=== PATIENT | male | born 1995 | race Caucasian/White ===

== ENCOUNTER 2022-03-27 15:41 | Outpatient (CLI) | payer OTHER, SELFPAY ==
[2022-03-27 21:20] LABS: Cholesterol* 164 mg/dL (90-199); Glucose* 78 mg/dL (60-115)
[2022-03-27 21:21] LABS: HDL Cholesterol* 58 mg/dL (>=40); LDL Cholesterol Calculated 93 mg/dL (<100); Triglycerides* 65 mg/dL (40-149)
== END 2022-03-27 15:42 | disposition home or self-care (01) ==
PROVIDERS: Visit Provider Emergency Medicine
DX: Z13.1 Encounter for screening for diabetes mellitus (principal); Z13.6 Encounter for screening for cardiovascular disorders
CPT/HCPCS: 80061; 82947

== ENCOUNTER 2023-03-09 11:09 | Emergency (ER) | payer OTHER, SELFPAY ==
[2023-03-09 11:20] VITALS: BP 131/95; PULSE 81; RESP 16; TEMP 36.5; O2SAT 98; BMI 25.7
--- NOTE | 2023-03-09 11:28 | ED.ABDPAIN ---
HPI - Abdominal Pain General Time Seen by Provider: 11:28 Date Seen: 03/09/23 Chief Complaint: Abdominal Pain Stated Complaint: Abdominal pain, nausea Time Seen by Provider: 03/09/23 11:22 Source: patient and RN notes reviewed Mode of arrival: ambulatory Limitations: no limitations History of Present Illness HPI narrative: This 27-year-old male is coming in with nausea vomiting and left upper quadrant abdominal pain. He states the pain is primarily in the left upper quadrant. He awoke with this this morning, has vomited a few times, had undigested food in the vomit. Did have 1 softer stool this morning, not necessarily diarrhea. Does admit to drinking 6 alcoholic beverages last night. He has never had any abdominal surgery. He is here with his significant other, they just came back from [place] on Friday, today is Friday. No when had been ill up to this point. He denies any respiratory symptoms or fever with this. He is having crampy left upper quadrant abdominal pain, seems like it radiates throughout his abdomen. No urinary symptoms. He does have underlying reflux and admits that he probably should take medicine more than he does. MD elicited complaint: abdominal pain Related Data Home Medications Medication Instructions Recorded Confirmed ibuprofen 200 mg capsule 200 mg PO Q6H PRN 10/11/21 01/08/23 Previous Rx's Medication Instructions Recorded omeprazole 20 mg capsule,delayed 20 mg PO QDAY PRN gerd #90 caps 03/27/22 release Allergies Allergy/AdvReac Type Severity Reaction Status Date / Time No Known Drug Allergies Allergy Verified 01/08/23 07:57 Review of Systems Status of ROS Reports: 6 or more systems reviewed and unremarkable except as noted in History and below PFSH PFS Medical History Screening for hyperlipidemia ?Z13.220 - Encounter for screening for lipoid disorders (ICD-10) Screening for diabetes mellitus ?Z13.1 - Encounter for screening for diabetes mellitus (ICD-10) Nasal turbinate hypertrophy ?J34.3 - Hypertrophy of nasal turbinates (ICD-10) GERD (gastroesophageal reflux disease) ?K21.9 - Gastro-esophageal reflux disease without esophagitis (ICD-10) Encounter for postoperative care ?Z48.89 - Encounter for other specified surgical aftercare (ICD-10) Encounter for health maintenance examination (10/2015) ?Z00.00 - Encounter for general adult medical examination without abnormal findings (ICD-10) Cough ?R05.9 - Cough, unspecified (ICD-10) Abrasion of penis ?S30.812A - Abrasion of penis, initial encounter (ICD-10) Sinusitis ?J32.9 - Chronic sinusitis, unspecified (ICD-10) Surgical History History of tonsillectomy ?Z90.89 - Acquired absence of other organs (ICD-10) History of nasal septoplasty ?Z98.890 - Other specified postprocedural states (ICD-10) History of esophagogastroduodenoscopy (EGD) ?Z98.890 - Other specified postprocedural states (ICD-10) Family History Family/Other Stroke Social History Smoking Status: Never smoker Do you use any of these nicotine containing products: None Second hand tobacco smoke exposure: No How often do you have a drink containing alcohol: 2-3 times a week How many standard drinks containing alcohol do you have on a typical day: 1 or 2 How often do you have six or more drinks on one occasion: Less than monthly AUDIT-C Alcohol total score: 4 Non-prescribed substance use: denies use Little interest or pleasure in doing things: not at all Feeling down, depressed, or hopeless: several days service: No Exam Const: Vital Signs, click to edit/add: Vital Signs - 24 hr 03/09/23 11:20 03/09/23 12:05 03/09/23 12:10 Temperature 97.7 F Pulse Rate [Pulse Oximeter] 81 78 Respiratory Rate 16 16 Blood Pressure [Ri ght Upper Arm] 131/95 H 138/98 H Pulse Oximetry 98 94 94 Oxygen Delivery Me thod Room Air Room Air 03/09/23 12:32 03/09/23 12:38 Temperature 97.7 F Pulse Rate [Pulse Oximeter] 69 Respiratory Rate 16 Blood Pressure [Ri ght Upper Arm] 134/88 Pulse Oximetry 94 96 Oxygen Delivery Me thod Room Air 27-year-old male that is intermittently grimacing, hanging onto an emesis bag but otherwise alert, conversive no significant distress. Sclera clear, pupils are equal and round, conjugate gaze. Speech is normal. Lungs are clear, good air entry, no wheezing or crackles. CV regular rate and rhythm, no murmur, normal S1-S2, no S3-S4. Abdomen is soft, nondistended, no significant tenderness but maybe has some mild left upper quadrant tenderness when I request that he tells me where it hurts. There is certainly no rebound or guarding, no organomegaly or masses. Skin visualized without rash. Moving extremities. Documenting provider has reviewed patient's vital signs: yes Course Course ED Course: This is a 27-year-old male with intermittent abdominal pain, primarily left upper quadrant with underlying history of GERD. This certainly could be component of alcoholic gastritis and symptoms of hangover. We will consider obstructive pathology, gastroenteritis. He has no fever at this time. Will get full complement of labs, do a flat and upright to look at the bowel architecture. He understands that we may need to consider CT imaging if there is concerns on the labs or if he is not improving with medications. Doubtful that this is pancreatitis but this is a consideration, lipase is ordered. We are going to do a L of normal saline, 4 mg IV Zofran and 40 mg IV Protonix. Reevaluation(s) Time of Reevaluation #1: 12:29 Reevaluation #1: Nursing staff requesting pain management for patient, still complaining of abdominal pain, waiting labs, imaging on my preliminary review without any obstructive pathology. Will order 15 mg IV Toradol. Time of Reevaluation #2: 13:23 Reevaluation #2: Patient is feeling better, just wants to go home and sleep. Offered another L of IV fluids but he declines. Did urinate here. Reviewed normal labs, no issues with flat and upright per Radiology. Discussed sending him home with some Zofran in case he does have any more nausea vomiting, they would appreciate that. Vital Signs Vital signs: Initial Vital Signs Temperature 97.7 F 03/09/23 11:20 Temperature Source Temporal Artery Scan 03/09/23 11:20 Pulse Rate 81 03/09/23 11:20 Pulse Rhythm Regular 03/09/23 11:20 Respiratory Rate 16 03/09/23 11:20 Blood Pressure 131/95 H 03/09/23 11:20 Blood Pressure Mean 107 H 03/09/23 11:20 Blood Pressure Position Supine 03/09/23 11:20 Pulse Oximetry 98 03/09/23 11:20 Oxygen Delivery Method Room Air 03/09/23 11:20 Vital Signs Temperature 97.7 F 03/09/23 11:20 Pulse Rate 81 03/09/23 11:20 Respiratory Rate 16 03/09/23 11:20 Blood Pressure 131/95 H 03/09/23 11:20 Pulse Oximetry 98 03/09/23 11:20 Oxygen Delivery Method Room Air 03/09/23 11:20 Temperature 97.7 F 03/09/23 12:38 Pulse Rate 69 03/09/23 12:38 Respiratory Rate 16 03/09/23 12:38 Blood Pressure 134/88 03/09/23 12:38 Pulse Oximetry 96 03/09/23 12:38 Oxygen Delivery Method Room Air 03/09/23 12:38 Medications Administered Medications: Discontinued Medications Generic Name Dose Route Start Last Admin Trade Name Freq PRN Reason Stop Dose Admin Sodium Chloride 1,000 mls @ 1,000 mls/hr 03/09/23 11:39 03/09/23 12:24 0.9 % Sodium Chloride 1000 Ml IV 03/09/23 12:38 1,000 mls/hr .Q1H RAE Administration Ketorolac Tromethamine 15 mg 03/09/23 12:28 03/09/23 12:36 Ketorolac 15 Mg/Ml Inj IVP 03/09/23 12:29 15 mg ONCE ONE Administration Ondansetron HCl 4 mg 03/09/23 11:37 03/09/23 12:24 Ondansetron 2 Mg/Ml Inj IVP 03/09/23 11:38 4 mg ONCE ONE Administration Pantoprazole Sodium 40 mg 03/09/23 11:37 03/09/23 12:24 Pantoprazole Sodium 40 Mg Inj IVP 03/09/23 11:38 40 mg ONCE ONE Administration MDM - Abdominal Pain Lab Data Attestation: I reviewed the patient's lab results. Labs: Lab Results 03/09/23 03/09/23 Range/Units 11:59 Unknown WBC 8.76 (4.50-11.00) K/uL RBC 5.96 H (4.30-5.90) m/uL Hgb 17.2 (13.5-17.5) gm/dL Hct 48.1 (37.0-53.0) % MCV 81 (80-100) fL MCH 29 (26-34) pg MCHC 36 (32-36) gm/dL RDW Coeff of Moni 11.5 (11.5-15.5) % Plt Count 280 (140-440) K/uL Neut % (Auto) 81.1 H (42.0-72.0) % Lymph % (Auto) 16.4 L (20-44) % [place] % (Auto) 2.1 (0.0-11.0) % Eos % (Auto) 0.0 (0.0-7.0) % Baso % (Auto) 0.2 (0.0-3.0) % Neut # (Auto) 7.10 H (1.7-7.0) K/uL Lymph # (Auto) 1.40 (0.90-2.90) K/uL [place] # (Auto) 0.20 (0.00-0.90) K/UL Eos # (Auto) 0.00 (0.00-0.50) K/uL Baso # (Auto) 0.02 (0.00-0.30) K/uL Abs Immat Gran (auto) 0.02 (0.00-0.30) K/uL Imm/Tot Granulo (auto) 0.2 % Sodium 140 (135-149) mmol/L Potassium 4.2 (3.6-5.1) mmol/L Chloride 103 (96-114) mmol/L Carbon Dioxide 25 (20-32) mmol/L Anion Gap 12 (7-15) mEq/L BUN 12 (5-24) mg/dL Creatinine 0.7 (0.5-1.5) mg/dL Estimated Creat Clear 187.56 Estimated GFR 131 ml/min Glucose 98 (60-115) mg/dL Lactate 2.1 H (0.5-1.9) mmol/L Calcium 10.4 (8.4-10.6) mg/dL Total Bilirubin 0.8 (0.1-1.5) mg/dL Direct Bilirubin 0.0 (0.0-0.5) mg/dL AST 29 (12-35) U/L ALT 36 (4-50) U/L C-Reactive Protein < 0.5 L (0.5-1.0) mg/dL Total Protein 8.1 (6.0-8.3) g/dL Albumin 5.3 H (3.3-5.0) g/dL Lipase 59 (23-300) U/L Urine Color Yellow (Yellow) Urine Appearance Clear (Clear) Urine pH 8.5 (5.0-8.5) Ur Specific [place] 1.015 (1.000-1.030) Urine Protein Trace A (Negative) Urine Glucose (UA) Negative (Negative) Urine Ketones Negative (Negative) Urine Blood Negative (Negative) Urine Nitrite Negative (Negative) Urine Bilirubin Negative (Negative) Urine Urobilinogen 0.2 (0.2-1.0) Ur Leukocyte Esterase Negative (Negative) Urine RBC 0-2 (0-2) Urine WBC 0-2 (0-5) Ur Squamous Epith Cells Few (None-Few) Urine Bacteria None (None) Imaging Data Abdominal x-ray: Attestation: I have reviewed the pertinent imaging results. My impression: No evidence of any obstructive bowel pathology on my preliminary review. Radiologist's impression: [facility] Facility:?[facility] Patient ID:?[id number] Site Patient ID:?[id number]. Site :?[id number] Study:?XRay Abdomen 2v-03/09/2023 12:11:18 PM Ordering Physician:Samreen South Final Report: INDICATION: N/V, upper bilateral abd pain INDICATION: Nausea/vomiting. TECHNIQUE: Abdomen 4 view. COMPARISON: None FINDINGS: Bowel: Bowel pattern is normal. Soft tissues: No sign of free air. No sign of soft tissue mass. No suspicious calcifications. Bones: Unremarkable for age. IMPRESSION: 1. Nonobstructive bowel gas pattern. 2. No evidence for pneumoperitoneum. Dictated by Sanya Clifton MD @ 03/09/2023 12:42:48 PM Dictated by: Sanya Clifton MD @ 03/09/2023 12:42:56 (Electronic Signature) Discharge Plan Discharge Clinical Impression: Acute alcoholic gastritis Qualifiers: Gastritis bleeding: without bleeding Qualified Code(s): K29.20 - Alcoholic gastritis without bleeding Patient Disposition: Home, Self-Care Condition: Stable Instructions: Gastritis (ED) Additional Instructions: Can use the Zofran prescribed as needed for any further nausea vomiting. Recommend frequent small sips of liquids to stay hydrated and not overload the stomach. Can advanced to regular diet as you feel better. Would recommend taking omeprazole daily for 2 weeks. Follow-up with primary care provider or available physician if you have ongoing GI symptoms. If at any point you do start vomiting blood, have blood in stools, have severe increased abdominal pain associated with vomiting or fever, do recommend emergent re-evaluation. Activity Level: Activity as Tolerated Prescriptions: No Action omeprazole 20 mg capsule,delayed release(DR/EC) 20 mg PO QDAY PRN (Reason: gerd) Qty: 90 3RF ibuprofen 200 mg capsule 200 mg PO Q6H PRN Follow Up/Referrals: Provider,Not a Local [Primary Care Provider] - Stand Alone Forms: [facility] Info Instructions
--- NOTE | 2023-03-09 11:37 | CRLHL7_ITS ---
For Patients: As a result of the Cures Act, medical imaging exams and procedure reports are released immediately into your electronic medical record. You may view this report before your referring provider. If you have questions, please contact your health care provider. INDICATION: N/V, upper bilateral abd pain INDICATION: Nausea/vomiting. TECHNIQUE: Abdomen 4 view. COMPARISON: None FINDINGS: Bowel: Bowel pattern is normal. Soft tissues: No sign of free air. No sign of soft tissue mass. No suspicious calcifications. Bones: Unremarkable for age. IMPRESSION: 1. Nonobstructive bowel gas pattern. 2. No evidence for pneumoperitoneum. Dictated by Sanya Clifton MD @ 03/09/2023 12:42:48 PM Dictated by: Sanya Clifton MD @ 03/09/2023 12:42:56 (Electronically Signed)
[2023-03-09 12:05] VITALS: O2SAT 94
[2023-03-09 12:10] VITALS: BP 138/98; PULSE 78; RESP 16; O2SAT 94
[2023-03-09 12:24] LABS: Basophils Absolute Auto 0.02 K/uL (0.00-0.30); Basophils Percent Auto 0.2 % (0.0-3.0); Hematocrit 48.1 % (37.0-53.0); Hemoglobin* 17.2 gm/dL (13.5-17.5); Immature Granulocytes Abs Auto 0.02 K/uL (0.00-0.30); Immature Granulocytes Pct Auto 0.2 %; Lactate* 2.1 mmol/L (0.5-1.9); Lymphocytes Percent Auto 16.4 % (20-44); Mean Corpuscular HGB Conc 36 gm/dL (32-36); Mean Corpuscular Hemoglobin 29 pg (26-34); Mean Corpuscular Volume 81 fL (80-100); Monocytes Percent Auto 2.1 % (0.0-11.0); Neutrophils Percent Auto 81.1 % (42.0-72.0); Platelet Count* 280 K/uL (140-440); RDW Coefficient of Variation % 11.5 % (11.5-15.5); Red Blood Count 5.96 m/uL (4.30-5.90); White Blood Count* 8.76 K/uL (4.50-11.00)
[2023-03-09] MEDS: PANTOPRAZOLE SODIUM 40 MG INJ IVP (12:24)
[2023-03-09] MEDS: ONDANSETRON 2 MG/ML inj 4 MG IVP (12:24)
[2023-03-09] MEDS: 0.9 % SODIUM CHLORIDE 1000 ml 1,000 ML IV (12:24)
[2023-03-09 12:25] LABS: Slide Review Reflex No
[2023-03-09 12:32] VITALS: O2SAT 94
[2023-03-09 12:32] LABS: Appearance Urine Clear (Clear); Bilirubin Urine Negative (Negative); Blood Urine Negative (Negative); Color Urine Yellow (Yellow); Glucose Urine Negative (Negative); Ketones Urine Negative (Negative); Leukocyte Esterase Urine Negative (Negative); Nitrite Urine Negative (Negative); Protein Urine Trace (Negative); Specific Gravity Urine 1.015 (1.000-1.030); Urobilinogen Urine 0.2 (0.2-1.0); pH Urine 8.5 (5.0-8.5)
[2023-03-09] MEDS: KETOROLAC 15 MG/ML inj IVP (12:36)
[2023-03-09 12:38] VITALS: BP 134/88; PULSE 69; RESP 16; TEMP 36.5; O2SAT 96
[2023-03-09 12:54] LABS: RBC Urine 0-2 (0-2); Squamous Epithelial Cell Urine Few (None-Few); WBC Urine 0-2 (0-5)
[2023-03-09 13:08] LABS: Chloride* 103 mmol/L (96-114)
[2023-03-09 13:09] LABS: Albumin* 5.3 g/dL (3.3-5.0); Potassium* 4.2 mmol/L (3.6-5.1); Sodium* 140 mmol/L (135-149)
[2023-03-09 13:11] LABS: Creatinine* 0.7 mg/dL (0.5-1.5); Est. Creatinine Clearance* 187.56; Estimated Glomerular Filt Rate 131 ml/min
[2023-03-09 13:12] LABS: Alanine Aminotransferase* 36 U/L (4-50); Anion Gap 12 mEq/L (7-15); Aspartate Amino Transferase* 29 U/L (12-35); Bilirubin Total* 0.8 mg/dL (0.1-1.5); Blood Urea Nitrogen* 12 mg/dL (5-24); Calcium* 10.4 mg/dL (8.4-10.6); Carbon Dioxide* 25 mmol/L (20-32); Glucose* 98 mg/dL (60-115); Lipase* 59 U/L (23-300); Total Protein* 8.1 g/dL (6.0-8.3)
[2023-03-09 13:17] LABS: C Reactive Protein* < 0.5 mg/dL (0.5-1.0)
[2023-03-09 13:35] LABS: Alkaline Phosphatase* 78 U/L (40-150)
[2023-03-09 13:37] VITALS: BP 132/86; PULSE 78; RESP 18
== END 2023-03-09 13:38 | disposition home or self-care (01) ==
PROVIDERS: Emergency Provider Family Medicine
DX: K29.20 Alcoholic gastritis without bleeding (principal)
CPT/HCPCS: 36415; 74019; 80053; 81001; 82248; 83605; 83690; 85025; 86140; 94761; 96374; 96375; 99284; C9113; J1885; J2405; J7030